=== PATIENT | male | born 1955 | race Caucasian/White ===

== ENCOUNTER 2017-02-04 05:20 | Emergency (ER) | payer BC ==
[2017-02-04 06:42] LABS: HEMOGLOBIN 16.5 gm/dl (14.0-17.5); RED BLOOD COUNT 4.98 M/UL (4.20-5.50); WHITE BLOOD COUNT 6.3 K/UL (4.5-11.0)
== END 2017-02-04 09:05 | disposition home or self-care (01) ==
LOC: ER1 05:20
PROVIDERS: Family Medicine
DX: R11.2 Nausea with vomiting, unspecified (principal); F10.10 Alcohol abuse, uncomplicated; R45.1 Restlessness and agitation
CPT/HCPCS: 36415; 70450; 71010; 80053; 80307; 81001; 82550; 82553; 83690; 83874; 84443; 84484; 85025; 87086; 96361; 96374; 99284; G0480; J2405; J2550; Q0177